=== PATIENT | male | born 1950 | race Caucasian/White ===

== ENCOUNTER 2016-08-30 14:20 | Emergency (ER) | payer MEDICARE, OTHER ==
[~2016-08-30] VITALS: Ht 180.3 cm; Wt 77.3 kg
[~2016-08-30 14:20] MED LIST: ALBUTEROL SUL0.083 % IN; AMOXICILLIN500 MG PO; BENZONATATE200 MG PO; COREG12.5 MG PO; COUMADIN5 MG PO; FUROSEMIDE20 MG PO; GLIPIZIDE ER5 M1 PO; K-TAB20 MEQ PO; LASIX 40 MG TAB40 MG PO; LISINOPRIL20 MG PO; MEDDOSEPAK PO; MICRO-K10 ME1 PO; NEBULIZE2; ONE DAILY FOR MEN 50 PO; SPIRONOLACT50 MG PO; TRAZODONE100 MG PO; WARFARIN SODIUM5 MG PO; XYZAL5 MG PO
[2016-08-30] MEDS ORDERED: MICRO-K10 MEQ PO (15:22)
[2016-08-30] MEDS ORDERED: COUMADIN5 MG PO ×2 (15:22→15:23)
[2016-08-30] MEDS ORDERED: MULTI VIT PO (15:23)
[2016-08-30] MEDS ORDERED: SPIRONOLACT25 MG PO (15:23)
[2016-08-30] MEDS ORDERED: COREG25 MG PO (15:24)
[2016-08-30] MEDS ORDERED: LISINOPRIL20 M1 PO (15:24)
[2016-08-30] MEDS ORDERED: LASIX 40 MG TAB40 MG PO (15:24)
[2016-08-30] MEDS ORDERED: GLIPIZIDE ER2.5 MG PO (15:25)
[2016-08-30] MEDS ORDERED: TRAZODONE50 MG PO (15:25)
[2016-08-30] MEDS ORDERED: EC-NAPROSYN500 MG PO (17:35)
[2016-08-30] MEDS ORDERED: LORTAB 5-325 MG1 TAB PO (17:35)
[2016-08-30 17:42] VITALS: BP 125/85
== END 2016-08-30 17:42 | disposition home or self-care (01) ==
LOC: ED 14:20
DX: M79.1 Myalgia (principal); M79.652 Pain in left thigh; F17.290 Nicotine dependence, other tobacco product, uncomplicated

== ENCOUNTER 2016-09-01 17:20 | Emergency (ER) | payer MEDICARE, OTHER ==
[~2016-09-01] VITALS: Ht 180.3 cm; Wt 77.7 kg
[~2016-09-01 17:20] MED LIST changes: +COREG25 MG PO; +EC-NAPROSYN500 MG PO; +GLIPIZIDE ER2.5 MG PO; +LISINOPRIL20 M1 PO; +LORTAB 5-325 MG1 TAB PO; +MICRO-K10 MEQ PO; +MULTI VIT PO; +SPIRONOLACT25 MG PO; +TRAZODONE50 MG PO
[2016-09-01 18:38] LABS: HEMATOCRIT 34.6 % (39.0-50.0); HEMOGLOBIN 11.4 g/dl (14.0-18.0); IMMATURE GRANULOCYTES 0.2 % (0.0-1.0); MEAN CELL VOLUME 94.3 fL CALC (80.0-100.0); MEAN CORPUSCULAR HGB 31.1 pG CALC (26.0-32.0); MEAN CORPUSCULAR HGB CONC 32.9 g/L CALC (32.0-36.0); NEUT# 2.61 thou/uL (1.82-7.42); RED BLOOD COUNT 3.67 mill/uL (4.70-6.10); RED CELL DISTRI WIDTH 15.5 % (11.5-15.5)
[2016-09-01 18:58] LABS: INTERNATIONAL NORMALIZED RATIO 9.3 RATIO (0.7-1.3); PROTHROMBIN TIME 119.5 SECONDS (9.0-12.5)
[2016-09-01 19:02] LABS: ALBUMIN 3.6 g/dL (3.2-5.0); BILIRUBIN, TOTAL 0.8 mg/dL (0.0-1.4); CALCIUM 8.5 mg/dL (8.4-10.2); CREATININE 2.3 mg/dL (0.7-1.3); POTASSIUM 4.7 mmol/l (3.5-5.1); TOTAL PROTEIN 7.5 g/dL (6.3-8.2)
[2016-09-01 19:40] LABS: URINE BLOOD DIPSTICK NEGATIVE (NEGATIVE); URINE CLARITY CLEAR; URINE COLOR YELLOW; URINE GLUCOSE - DIPSTICK NEGATIVE (NEGATIVE); URINE KETONE NEGATIVE (NEGATIVE); URINE LEUK ESTERASE NEGATIVE (NEGATIVE); URINE NITRITE - DIPSTICK NEGATIVE (Negative); URINE PROTEIN - DIPSTICK TRACE mg/dL (NEG-TRACE); URINE SPECIFIC GRAVITY 1.025
[2016-09-01 19:43] VITALS: BP 131/89
[2016-09-01 19:43] LABS: URINE BILIRUBIN - DIPSTICK NEGATIVE (NEGATIVE)
== END 2016-09-01 19:43 | disposition left against medical advice (07) ==
LOC: ED 17:20
PROVIDERS: Emergency Medicine
DX: N17.9 Acute kidney failure, unspecified (principal); Z91.19 Patient's noncompliance with other medical treatment and regimen; R04.0 Epistaxis; T45.515A Adverse effect of anticoagulants, initial encounter; Y92.009 Unspecified place in unspecified non-institutional (private) residence as the place of occurrence of the external cause; F17.290 Nicotine dependence, other tobacco product, uncomplicated

== ENCOUNTER 2016-09-10 08:42 | Emergency (ER) | payer MEDICARE, OTHER ==
[~2016-09-10] VITALS: Ht 180.3 cm; Wt 78.2 kg
[2016-09-10 09:17] LABS: HEMATOCRIT 31.6 % (39.0-50.0); HEMOGLOBIN 10.3 g/dl (14.0-18.0); IMMATURE GRANULOCYTES 0.2 % (0.0-1.0); MEAN CELL VOLUME 94.3 fL CALC (80.0-100.0); MEAN CORPUSCULAR HGB 30.7 pG CALC (26.0-32.0); MEAN CORPUSCULAR HGB CONC 32.6 g/L CALC (32.0-36.0); NEUT# 4.04 thou/uL (1.82-7.42); RED BLOOD COUNT 3.35 mill/uL (4.70-6.10); RED CELL DISTRI WIDTH 16.2 % (11.5-15.5)
[2016-09-10 09:37] LABS: CALCIUM 9.3 mg/dL (8.4-10.2); CREATININE 1.5 mg/dL (0.7-1.3); POTASSIUM 4.9 mmol/l (3.5-5.1); TOTAL PROTEIN 8.2 g/dL (6.3-8.2)
[2016-09-10 09:42] LABS: INTERNATIONAL NORMALIZED RATIO 1.3 RATIO (0.7-1.3)
[2016-09-10] MEDS ORDERED: METOPROL TAR25 MG PO (10:36)
[2016-09-10] MEDS ORDERED: SPIRONOLACTONE25 MG PO (10:36)
[2016-09-10] MEDS ORDERED: LASIX 40 MG TAB40 MG PO ×2 (11:01→11:16)
[2016-09-10] MEDS ORDERED: LISINOPRIL40 MG PO (11:02)
[2016-09-10 11:41] VITALS: BP 168/83
== END 2016-09-10 11:41 | disposition home or self-care (01) ==
LOC: ED 08:42
PROVIDERS: Emergency Medicine
DX: R06.02 Shortness of breath (principal); R94.31 Abnormal electrocardiogram [ECG] [EKG]; F17.290 Nicotine dependence, other tobacco product, uncomplicated; I10 Essential (primary) hypertension; I50.9 Heart failure, unspecified; I48.91 Unspecified atrial fibrillation; E11.9 Type 2 diabetes mellitus without complications; R09.89 Other specified symptoms and signs involving the circulatory and respiratory systems; I25.810 Atherosclerosis of coronary artery bypass graft(s) without angina pectoris; Z95.1 Presence of aortocoronary bypass graft